=== PATIENT | female | born 1990 | race Asian ===

== ENCOUNTER 2024-05-28 12:55 | Inpatient (IN) | payer OTHER ==
[2024-05-28] MEDS: ELECTROLYTE-148 SOLN 1,000 ML IV SCH ×2 (13:00→16:22)
[2024-05-28 14:12] VITALS: RESP 18; BMI 31.1
[2024-05-28 14:13] LABS: BASO % 0.6 % (0-2.0); EOS % 0.5 % (0-4.5); HEMATOCRIT 36.4 % (32.4-45.2); HEMOGLOBIN 11.8 GM/dL (10.7-15.3); LYMPH % 13.2 % (8-40); MCH 24.8 pg (25.7-33.7); MCHC 32.4 g/dl (32.0-36.0); MEAN CELL VOLUME 76.6 fl (80-96); MEAN PLT VOLUME 8.1 fl (7.5-11.1); MONO % 5.8 % (3.8-10.2); NEUT % 79.9 % (42.8-82.8); PLATELET COUNT 325 10^3/uL (134-434); RBC 4.75 M/mm3 (3.60-5.2); RDW 16.7 % (11.6-15.6); WHITE BLOOD COUNT 11.1 K/mm3 (4.0-10.0)
[2024-05-28 14:30] LABS: POTASSIUM 4.3 mmol/L (3.5-5.1)
[2024-05-28 14:32] LABS: BLOOD UREA NITROGEN 12.7 mg/dL (7-18); CALCIUM 8.9 mg/dL (8.5-10.1); INR 0.93 (0.83-1.09); PROTHROMBIN TIME (PATIENT) 10.7 SEC (9.7-13.0)
[2024-05-28] MEDS ORDERED: OXYTOCIN 20 UNITS in 0.9% NS 20 UNIT/1,000 ML INFUS.BAG IV ONE ×2 (14:32→16:37)
[2024-05-28] MEDS ORDERED: LIDOCAINE HCL 1% PRESERVATIVE FREE - 30ML VIAL ONE (14:32)
[2024-05-28 14:35] LABS: ACTIVATED PTT 30.7 SECONDS (25.2-36.5)
[2024-05-28 14:36] LABS: CREATININE 0.6 mg/dL (0.55-1.3)
[2024-05-28] MEDS: OXYTOCIN 20 UNITS in 0.9% NS 20 UNIT/1,000 ML INFUS.BAG IV SCH (14:50)
[2024-05-28] MEDS ORDERED: IBUPROFEN 600 MG TABLET (FP) PO ONE (15:00)
[2024-05-28] MEDS ORDERED: ACETAMINOPHEN 325 MG TABLET (FP) PO PRN (15:09)
[2024-05-28] MEDS ORDERED: BISACODYL 10 MG SUPP.RECT RC PRN (15:09)
[2024-05-28] MEDS ORDERED: BENZOCAINE 28 GM HEMORRHOIDAL OINTMENT TP PRN (15:09)
[2024-05-28] MEDS ORDERED: METHYLERGONOVINE MALEATE 0.2 MG/1 ML AMP IM PRN (15:09)
[2024-05-28] MEDS ORDERED: WITCH HAZEL 50% (TUCKS) 40 PAD/JAR PAD TP PRN (15:09)
[2024-05-28] MEDS ORDERED: oxyCODONE HCL 5 MG TABLET PO PRN (15:09)
[2024-05-28 15:49] LABS: CORD BASE EXCESS -8.5 mmol/L (0-2); CORD PCO2 40.7 mmHg (30-78); CORD pH 7.263 (7.14-7.44)
[2024-05-28 15:50] LABS: CORD BASE EXCESS -5.7 mmol/L (0-2); CORD HCO3 20.8 mmHg (20-29); CORD PCO2 44.1 mmHg (30-78); CORD pH 7.291 (7.14-7.44)
[2024-05-28] MEDS: IBUPROFEN 600 MG TABLET (FP) PO PRN (16:42)
[2024-05-29] MEDS: FERROUS SO4 325 MG TABLET (FP) PO SCH (07:07)
[2024-05-29 07:20] LABS: BASO % 0.7 % (0-2.0); EOS % 2.1 % (0-4.5); HEMATOCRIT 33.4 % (32.4-45.2); HEMOGLOBIN 10.9 GM/dL (10.7-15.3); LYMPH % 21.8 % (8-40); MCH 25.2 pg (25.7-33.7); MCHC 32.6 g/dl (32.0-36.0); MEAN CELL VOLUME 77.1 fl (80-96); MEAN PLT VOLUME 8.1 fl (7.5-11.1); MONO % 8.2 % (3.8-10.2); NEUT % 67.2 % (42.8-82.8); PLATELET COUNT 256 10^3/uL (134-434); RBC 4.33 M/mm3 (3.60-5.2); RDW 16.6 % (11.6-15.6); WHITE BLOOD COUNT 10.6 K/mm3 (4.0-10.0)
[2024-05-29] MEDS: BENZOCAINE 20% 57 GM BOTTLE TP PRN (09:23)
[2024-05-29] MEDS: PRENATAL VITAMINS W/ FOLIC ACID TABLET (FP) PO SCH (09:23)
[2024-05-29] MEDS ORDERED: SENNOSIDES/DOCUSATE COMBO (SENNA PLUS) TABLET (UD) PO PRN (22:00)
[2024-05-30 09:49] VITALS: BP 120/77; PULSE 77; TEMP 98
== END 2024-05-30 13:50 | disposition home or self-care (01) | DRG 560 ==
LOC: JLDR 12:55 → J3W 16:45
PROVIDERS: ADMIT Obstetrics & Gynecology; ATTEND Obstetrics & Gynecology
PROC: 10E0XZZ Delivery of Products of Conception, External Approach (ICD-10-PCS; principal; 2024-05-28)
DX: O36.5930 Maternal care for other known or suspected poor fetal growth, third trimester, not applicable or unspecified (principal); Z3A.39 39 weeks gestation of pregnancy; Z37.0 Single live birth
CPT/HCPCS: 36415; 36600; 59409; 80048; 82803; 85025; 85610; 85730; 86780; 86850; 86900; 86901